=== PATIENT | female | born 1960 | race Caucasian/White ===

== ENCOUNTER 2016-11-03 17:28 | Emergency (ER) | payer MEDICARE, OTHER | END 2016-11-03 20:38 | disposition home or self-care (01) | LOC: ER 17:28 | DX: J06.9 Acute upper respiratory infection, unspecified (principal); J44.9 Chronic obstructive pulmonary disease, unspecified; R51 Headache; R06.02 Shortness of breath; G47.30 Sleep apnea, unspecified; M06.9 Rheumatoid arthritis, unspecified; M54.10 Radiculopathy, site unspecified; F17.210 Nicotine dependence, cigarettes, uncomplicated; Z79.891 Long term (current) use of opiate analgesic; Z79.899 Other long term (current) drug therapy; Z79.82 Long term (current) use of aspirin | CPT/HCPCS: 71020; 87400; 93005; 94664; 96372; 99284; 99285-25 ==

== ENCOUNTER → 2016-11-20 | Day surgery (SDC) | payer MEDICARE, OTHER | LOC: OPS 07:57 | PROC: 0DBP8ZX Excision of Rectum, Via Natural or Artificial Opening Endoscopic, Diagnostic (ICD-10-PCS; principal; 2016-11-20) | PROC: 0DBH8ZX Excision of Cecum, Via Natural or Artificial Opening Endoscopic, Diagnostic (ICD-10-PCS; 2016-11-20) | DX: K62.1 Rectal polyp (principal); D12.0 Benign neoplasm of cecum; R19.5 Other fecal abnormalities; Z86.010 Personal history of colon polyps; F41.9 Anxiety disorder, unspecified; J44.9 Chronic obstructive pulmonary disease, unspecified; E11.9 Type 2 diabetes mellitus without complications; K21.9 Gastro-esophageal reflux disease without esophagitis; E78.5 Hyperlipidemia, unspecified; I10 Essential (primary) hypertension; G47.10 Hypersomnia, unspecified; I73.9 Peripheral vascular disease, unspecified; G47.33 Obstructive sleep apnea (adult) (pediatric); G25.81 Restless legs syndrome; R06.83 Snoring; M19.90 Unspecified osteoarthritis, unspecified site; Z80.9 Family history of malignant neoplasm, unspecified; Z82.49 Family history of ischemic heart disease and other diseases of the circulatory system; F17.210 Nicotine dependence, cigarettes, uncomplicated; Z79.82 Long term (current) use of aspirin; Z79.899 Other long term (current) drug therapy; Z99.81 Dependence on supplemental oxygen; Z79.891 Long term (current) use of opiate analgesic | CPT/HCPCS: 45380; 82962; 94664; 99070; J2704 ==